=== PATIENT | male | born 1940 | race Caucasian/White ===

== ENCOUNTER 2017-03-02 16:05 | Inpatient (IN) ==
--- NOTE | 2017-03-02 16:42 | CT Report ---
CT head/brain wo con Indication: Hemiparesis. CT BRAIN WITHOUT CONTRAST DLP: 915 mGy*cm. One or more of the following dose reduction techniques was used: Automated exposure control, adjustment of the mA and/or kV according the patient size, or use of iterative reconstruction techniques. Comparison: 12/19/2013. Date of admission: 03/02/2017. Technique: Axial noncontrast CT images of the brain were obtained. Findings: Chronic infarcts of the left temporal, occipital and parietal lobes are now present, new since 12/19/2013. Elsewhere, chun-white junction is maintained. Basal ganglia structures are well maintained as well. No midline shift. Ex vacuo dilatation of the left lateral ventricle developing. No acute hemorrhage, mass or mass effect. Mild atrophy. No bone lesions. Visualized sinuses are clear. Impression: Old large territory infarcts of the left MCA and ELECTRIC TRUCKER vascular territories involving the left temporal, parietal and occipital lobes. No acute hemorrhage or acute stroke identified. PROCEDURE INTERPRETED AT [facility] DEPARTMENT OF RADIOLOGY Final Report Signed by: Jose Gomez M.D.
--- NOTE | 2017-03-02 16:45 | XRay Report ---
XR chest 1V portable Indication: Cardiomegaly. Chest one view: Comparison 12/19/2013. Pulmonary vascular congestion is improved from the previous examination although there is still some degree of central pulmonary arterial prominence as well as subpleural septal thickening of both lung bases laterally. Scattered calcified granulomata are stable. Lung volumes remain low. Cardiomegaly has improved but persists. Impression: Improved CHF and compared to 12/19/2013. However, there is an element of failure present on the current exam. Scattered calcified granulomata. PROCEDURE INTERPRETED AT [facility] DEPARTMENT OF RADIOLOGY Final Report Signed by: Jose Gomez M.D.
--- NOTE | 2017-03-02 17:05 | EKG Report ---
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
[2017-03-02 17:11] LABS: Basophils # 0.1 10*3/uL (0.0-0.2); Basophils % 0.9 % (0.0-0.8); Eosinophils # 0.2 10*3/uL (0.0-0.87); Eosinophils % 2.3 % (0.00-10.9); Hematocrit 41.7 VOL% (42.0-52.0); Hemoglobin 14.2 GM/DL (14.0-18.0); Immature Granulocytes % 0.4 %; Immature Granulocytes Absolute 0.04 #; Lymphocytes # 1.4 10*3/uL (1.4-4.0); Lymphocytes % 15.6 % (21.2-54.2); Mean Corpuscular HGB Conc 34.1 GM/DL (32-36); Mean Corpuscular Hemoglobin 31 PG (27-34); Mean Corpuscular Volume 91.9 FL (87-102); Mean Platelet Volume 11.3 FL (9.6-12.0); Monocytes % 11.1 % (1.7-12.7); Neutrophils # 6.4 10*3/uL (1.4-7.4); Neutrophils % 69.7 % (38.7-73.9); Platelet Count 133 T/CUMM (130-400); Red Blood Count 4.54 MC/CUMM (3.8-5.5); Red Cell Distribution Width 13.3 % (9.3-17.3); White Blood Count 9.2 T/CUMM (4-12)
[2017-03-02] MEDS ORDERED: ACETAMINOPHEN 325 MG TABLET PO PRN (17:12)
[2017-03-02] MEDS ORDERED: ONDANSETRON 4 MG/2 ML VIAL IV PRN (17:12)
[2017-03-02 17:24] LABS: PT Patient Result 10.3 SECS; Partial Thromboplastin Time 25.9 SECS (0-40)
[2017-03-02 17:30] LABS: Apearance,Urine CLEAR (Clear); Bilirubin,Urine Negative (Negative); Blood, Urine Negative (Negative); Glucose,Urine (UA) >=500 mg/dL (Negative); Hyaline Casts,Urine 1 /LPF (0-3); Ketones,Urine Negative (Negative); Nitrite,Urine Negative (Negative); Protein,Urine Negative; Urine Color Straw (Yellow); Urine Specific Gravity 1.009 (1.001-1.035); Urine Urobilinogen < 2.0 EU/DL (0.2-1.0)
[2017-03-02 17:39] LABS: Barbiturates Screen,Urine Negative (Negative); Benzodiazepines Screen,Urine Negative (Negative); Cannabinoid Screen,Urine Negative (Negative); Opiate Screen,Urine Negative (Negative); Phencyclidine Screen,Urine Negative (Negative)
[2017-03-02 17:47] LABS: Alanine Aminotransferase 23 U/L (16-61); Albumin 3.6 G/DL (3.4-5.0); Alkaline Phosphatase 81 U/L (45-117); Aspartate Amino Transferase 21 U/L (0-37); Blood Urea Nitrogen 29 MG/DL (7-18); Calcium 9.5 MG/DL (8.5-10.1); Glucose 200 MG/DL (74-106); Osmolality,Calculated 284.8 MOS/KG (273-304); Potassium 4.9 MMOL/L (3.5-5.1); Sodium 137 MMOL/L (136-145)
[2017-03-02] MEDS ORDERED: ENOXAPARIN 40 MG/0.4 ML SYRINGE ONE (18:04)
[2017-03-02] MEDS: ENOXAPARIN 40 MG/0.4 ML SYRINGE SUBCUT SCH ×2 (18:11→18:42)
[2017-03-03] MEDS: DOCUSATE SODIUM 100 MG CAPSULE PO SCH ×3 (03:42→21:14)
--- NOTE | 2017-03-03 08:20 | Family Practice History&Phys ---
Assessment and Plan (1) Possible CVA Status: Acute Assessment and plan: Patient was admitted for close observation and therapy he is scheduled to have MRI of the brain duplex ultrasound of the carotids today. Current Visit: Yes (2) History of previous CVA Status: Chronic Assessment and plan: Previous large MCA and PROPERTY VALUER vascular territory infarct with expressive aphasia. Current Visit: Yes (3) Expressive aphasia Status: Chronic Assessment and plan: Expressive aphasia since previous cerebrovascular accident Current Visit: Yes (4) Type 2 diabetes mellitus Status: Chronic Assessment and plan: Stable on present medication Current Visit: Yes (5) Hypertension Status: Chronic Assessment and plan: Stable on present medication Current Visit: Yes (6) Hyperlipidemia Status: Chronic Assessment and plan: Stable at present Current Visit: Yes History of Present Illness Chief complaint: Patient weakness weakness right arm and History of present illness: Mr. Peña is a 77 year old male Patient is a 77-year-old white male who treated for many years who is admitted to the emergency room after he had a sudden onset of mental status changes associated with some right facial weakness and weakness in her right arm right leg. states that he woke up suddenly during the night and apparently was able to talk for a brief period of time. He has had expressive aphasia since his last cerebrovascular accident. He went back to sleep and when he woke up he was not able to talk. He has had some weakness in his arm and leg although patient states that it did resolve this a.m.. He was seen in the emergency room and head CT revealed previous old large infarct but is otherwise stable. He was admitted for further evaluation and therapy. Presently on oral anticoagulant. View of history was admitted for observation therapy Home Medications Medication Instructions Recorded Confirmed Type Clopidogrel Bisulfate [Clopidogrel] 75 mg PO DAILY 03/02/17 03/02/17 History Glyburide,Micronized [Glyburide 6 mg PO BID 03/02/17 03/02/17 History Micronized] Insulin Glargine,Hum.rec.anlog 16 units SUBCUT DAILY 03/02/17 03/02/17 History [Lantus SoloStar] Lisinopril [Lisinopril] 20 mg PO DAILY 03/02/17 03/02/17 History Loratadine Tab [Claritin Tab] 10 mg PO BEDTIME 03/02/17 03/02/17 History Magnesium Chloride [Slow Mag] 64 mg PO BID 03/02/17 03/02/17 History Nadolol [Nadolol] 20 mg PO DAILY 03/02/17 03/02/17 History Simvastatin [Simvastatin] 20 mg PO BEDTIME 03/02/17 03/02/17 History Allergies Allergy/AdvReac Type Severity Reaction Status Date / Time No Known Allergies Allergy Unverified 03/02/17 17:18 Medical,Surgical,& Family Hx - Medical History Cardio: History of: Hypertension Neurology: History of: Cerebrovascular Accident Endocrine: History of: Diabetes Mellitus (IDDM), Dyslipidemia Genitourinary: History of: Prostate Problems Musculoskeletal: No history of: Amputation - Surgical History HEENT Surgeries: Surgical HX of: Tonsilectomy & Adenoidectomy Abdominal Surgeries: Patient denies: Abdominal Surgery Reproductive Surgeries: Patient denies;: Genitourinary Surgery - Family History Family History: Reports;: Family Cancer (mother, colon CA), Family Diabetes - Social History Smoking Status: Never smoker Frequency of Alcohol Use: None Type of Drug Use: None Marital Status: Lives With:: Spouse Functional capacity: independent ambulation Exam - Constitutional Vitals: Period Temp Pulse Resp BP Sys/Anton Pulse Ox Last 24 Hr 97.4 F-99.5 F 54-95 14-20 109-181/58-111 94-99 General appearance: mild distress - Head Head exam: Present: normal inspection - Eye Pupils: Present: ROBINSON - ENT ENT exam: Present: normal exam - Neck Neck exam: Present: normal inspection - Respiratory Respiratory exam: Present: clear to auscultation bilaterally - Cardiovascular Cardiovascular exam: Present: regular rate and rhythm - GI/Abdominal GI/Abdominal exam: Present: normal bowel sounds, soft - Extremities Exam Extremities exam: Present: other (Patient has slight weakness right arm and right leg which is stable) - Back Exam Back exam: Present: normal inspection - Neurological Exam Neurological exam: Present: alert, other (Patient has expressive aphasia. Slight right facial weakness which is stable. Slight weakness right arm which is stable) - Psychiatric Psychiatric exam: Present: normal affect - Skin Skin exam: Present: normal color Results - Labs CBC & BMP: 03/02/17 16:58 03/02/17 16:58
[2017-03-03] MEDS: INSULIN GLARGINE 100 UNIT/ML SUBCUT SCH (08:50)
[2017-03-03] MEDS: glyBURIDE MICRONIZED 6 MG TABLET PO SCH ×2 (08:51→17:07)
[2017-03-03] MEDS: NADOLOL 40 MG TABLET PO SCH (08:51)
[2017-03-03] MEDS: LISINOPRIL 20 MG TABLET PO SCH (08:52)
[2017-03-03] MEDS: PANTOPRAZOLE 40 MG TABLET PO SCH (08:52)
[2017-03-03] MEDS ORDERED: CLOPIDOGREL 75 MG TABLET PO SCH (09:00)
--- NOTE | 2017-03-03 10:04 | Ultrasound Report ---
Carotid artery ultrasound Indication: Stroke Comparison: None available Color Doppler flow and spectral analysis was performed. Findings: Small amount of atherosclerotic plaque is present in both proximal internal carotid arteries. Small amount of calcification with shadowing is seen in the right proximal internal carotid artery. Right peak systolic velocity: Right CCA:59.2 Right proximal Internal Carotid Artery is 60.0 cm/s. Ratio of flow is 1.3 Right distal Internal Carotid is 77.6 cm/s . Left peak systolic velocity: Left CCA:63.3 Left proximal Internal carotid Artery is 44.1 cm/s . Ratio of flow is 0.7 Left distal Internal carotid Artery is 42.4cm/s Bilateral antegrade vertebral flow is seen. Impression: No evidence of hemodynamically significant stenosis is seen, 0-49% estimated stenosis. Consensus conference on the carotid ultrasound criteria used. Ultrasound images were captured and stored. PROCEDURE INTERPRETED AT [facility] DEPARTMENT OF RADIOLOGY Final Report Signed by: Dr. Braden Figueroa
[2017-03-03] MEDS: MAGNESIUM CHLORIDE 64 MG TABLET PO SCH ×2 (10:34→21:14)
[2017-03-03] MEDS: INSULIN LISPRO 100 UNIT/ML SUBCUT SCH ×3 (12:18→21:14)
--- NOTE | 2017-03-03 13:40 | Magnetic Resonance Report ---
MRI brain without contrast Indication: Right side facial weakness Comparison: 20 December 2013, CT 02 March 2017 Technique: Axial sagittal and coronal imaging of the brain is performed without contrast. T1, T2, FLAIR and diffusion weighted sequences are performed. Findings: There is restricted diffusion present in the medial left occipital occipital lobe more prominent in the periphery, similar to CT appearance. Centrally there is signal hypointensity on the gradient sequence consistent with hemorrhage. Encephalomalacia and chronic infarct in the left temporal left parietal lobe area involved from previous infarct since the previous exam. No other evidence of intracranial hemorrhage, mass, mass effect or midline shift is seen. The remaining brain parenchyma has normal signal and differentiation. The ventricles and cisterns are appropriate in caliber. Posterior fossa, mid brain and pituitary gland appear within normal limits. No evidence of cranial or skull base abnormality seen. Impression: Medial occipital lobe infarct with some internal hemorrhage present similar to CT appearance. No other acute findings. PROCEDURE INTERPRETED AT [facility] DEPARTMENT OF RADIOLOGY Final Report Signed by: Dr. Braden Figueroa
--- NOTE | 2017-03-03 15:41 | Neurology Consult Note ---
History of Present Illness History of present illness: Mr. Peña is a 77 year old right-handed white gentleman with past medical history of CVA, diabetes, hyperlipidemia, hypertension admitted to the hospital with acute onset of difficulty with her speech, right facial droop, right arm weakness and leg weakness. states that he woke up suddenly during the night and apparently was able to talk for a brief period of time. He has had expressive aphasia since his last cerebrovascular accident. He went back to sleep and when he woke up he was not able to talk. He has had some weakness in his arm and leg. CT head revealed previous old large infarct in the left MCA distribution. MRI of the brain revealed new subacute to acute left MCA distribution infarct involving both temporal and occipital lobe this time. Carotid ultrasound is unremarkable. Echo and lipid profile are not done. Patient was taking Plavix at home. Home Medications Medication Instructions Recorded Confirmed Type Clopidogrel Bisulfate [Clopidogrel] 75 mg PO DAILY 03/02/17 03/02/17 History Glyburide,Micronized [Glyburide 6 mg PO BID 03/02/17 03/02/17 History Micronized] Insulin Glargine,Hum.rec.anlog 16 units SUBCUT DAILY 03/02/17 03/02/17 History [Lantus SoloStar] Lisinopril [Lisinopril] 20 mg PO DAILY 03/02/17 03/02/17 History Loratadine Tab [Claritin Tab] 10 mg PO BEDTIME 03/02/17 03/02/17 History Magnesium Chloride [Slow Mag] 64 mg PO BID 03/02/17 03/02/17 History Nadolol [Nadolol] 20 mg PO DAILY 03/02/17 03/02/17 History Simvastatin [Simvastatin] 20 mg PO BEDTIME 03/02/17 03/02/17 History Allergies Allergy/AdvReac Type Severity Reaction Status Date / Time No Known Allergies Allergy Unverified 03/02/17 17:18 12 point system: reviewed and no additional remarkable complaints except as stated Medical,Surgical,& Family Hx - Medical History Cardio: History of: Hypertension Neurology: History of: Cerebrovascular Accident Endocrine: History of: Diabetes Mellitus (IDDM), Dyslipidemia Genitourinary: History of: Prostate Problems Musculoskeletal: No history of: Amputation - Surgical History HEENT Surgeries: Surgical HX of: Tonsilectomy & Adenoidectomy Abdominal Surgeries: Patient denies: Abdominal Surgery Reproductive Surgeries: Patient denies;: Genitourinary Surgery - Family History Family History: Reports;: Family Cancer (mother, colon CA), Family Diabetes - Social History Smoking Status: Never smoker Frequency of Alcohol Use: None Type of Drug Use: None Exam - Constitutional Vitals: Period Temp Pulse Resp BP Sys/Anton Pulse Ox Last 24 Hr 97.4 F-99.5 F 54-98 14-20 109-181/58-111 94-99 Exam: GENERAL: Patient is in no acute distress. NECK: Neck is supple. There is no JVD. No carotid bruits present. No thyroid masses. CVS: First and second heart sounds are normal. There is no S3 present. Regular rate and rhythm. RESPIRATORY: Lungs are clear to auscultation without any rales or rhonchi. ABDOMEN: Soft and non-tender. Bowel sounds are present. There is no hepatosplenomegaly. EXT: There is no palpable edema. Peripheral pulses are present. Skin: No rashes Central Nervous system: General: Alert, awake and Oriented x 3 Speech: Fluent Comprehension: Intact and normal Facial expressions: Normal Cranial Nerves: CN1/Olfactory: Normal CN II/ Optic: Normal, Visual Arango unreliable CN III, and : ROBINSON & EOMI CN V: Normal & intact CN VII: face is symmetric CNVIII: Normal CN XI/X/XI/XII: Intact and Normal Motor: Bulk and Tone is normal. Strength in the right 4/5 Strength in the left 5/5 Sensory: Grossly intact for all the modalities of PP, LT and temp sense Reflexes: 1+ and symmetrical Cerebellar function: Normal finger to nose and heel to cho testing. Toes: Equivocal Gait: Able to get up and walk Results - Labs CBC & BMP: 03/02/17 16:58 03/02/17 16:58 Assessment and Plan (1) Acute CVA (cerebrovascular accident) Status: Acute Assessment and plan: Stop Plavix Start Eliquis 2.5 twice daily Echocardiogram Lipid panel Consult ST PT OT Add Lipitor 10 mg p.o. daily Current Visit: Yes
[2017-03-03 16:44] LABS: Risk Ratio 2.71; VLDL CHOLESTEROL 21.6 MG/DL
[2017-03-03] MEDS ORDERED: SIMVASTATIN 20 MG TABLET PO SCH (21:00)
[2017-03-03] MEDS ORDERED: LORATADINE 10 MG TABLET PO SCH (21:00)
[2017-03-03] MEDS: APIXABAN 2.5 MG TABLET PO SCH (21:14)
[2017-03-04 07:20] LABS: Basophils # 0.1 10*3/uL (0.0-0.2); Basophils % 1.2 % (0.0-0.8); Eosinophils # 0.2 10*3/uL (0.0-0.87); Eosinophils % 1.7 % (0.00-10.9); Hematocrit 43.8 VOL% (42.0-52.0); Hemoglobin 15.2 GM/DL (14.0-18.0); Immature Granulocytes % 0.6 %; Immature Granulocytes Absolute 0.07 #; Lymphocytes # 2.1 10*3/uL (1.4-4.0); Lymphocytes % 17.3 % (21.2-54.2); Mean Corpuscular HGB Conc 34.7 GM/DL (32-36); Mean Corpuscular Hemoglobin 31 PG (27-34); Mean Corpuscular Volume 90.3 FL (87-102); Mean Platelet Volume 12.2 FL (9.6-12.0); Monocytes # 1.2 10*3/uL (0.11-0.8); Monocytes % 10.3 % (1.7-12.7); Neutrophils # 8.2 10*3/uL (1.4-7.4); Neutrophils % 68.9 % (38.7-73.9); Platelet Count 139 T/CUMM (130-400); Red Blood Count 4.85 MC/CUMM (3.8-5.5); Red Cell Distribution Width 13.3 % (9.3-17.3); White Blood Count 11.9 T/CUMM (4-12)
[2017-03-04 07:42] LABS: Osmolality,Calculated 283.7 MOS/KG (273-304); Potassium 4.4 MMOL/L (3.5-5.1)
[2017-03-04 08:08] VITALS: BP 120/59
--- NOTE | 2017-03-04 08:26 | Discharge Summary ---
Hospital Course - Hospital Course Hospital Course: History of present illness: Mr. Peña is a 77 year old male Patient is a 77-year-old white male who treated for many years who is admitted to the emergency room after he had a sudden onset of mental status changes associated with some right facial weakness and weakness in her right arm right leg. states that he woke up suddenly during the night and apparently was able to talk for a brief period of time. He has had expressive aphasia since his last cerebrovascular accident. He went back to sleep and when he woke up he was not able to talk. He has had some weakness in his arm and leg although patient states that it did resolve this a.m.. He was seen in the emergency room and head CT revealed previous old large infarct but is otherwise stable. He was admitted for further evaluation and therapy. Presently on oral anticoagulant. View of history was admitted for observation therapy DISCHARGE SUMMARY -patient was admitted hospital lab and x-ray studies obtained. Initial head CT revealed old infarct but no new changes. Patient's weakness and other symptoms and pretty much resolved by the time he was admitted. Seen in consultation by local neurologist. MRI of the brain and duplex ultrasound of the carotids were obtained. MRI does not reveal any new acute changes possibly reveals a subacute or old infarct since the previous scan. Patient is back to his normal physical and mental state. He is ambulating tolerating diet activity and medications. Will discharge patient to home care have him resume his normal level of activity arrange follow-up in the clinic. Will have him call or return to the emergency room condition worsening problems develop Diagnosis - Discharge Diagnosis (1) Possible CVA Status: Acute (2) History of previous CVA Status: Chronic (3) Expressive aphasia Status: Chronic (4) Type 2 diabetes mellitus Status: Chronic (5) Hypertension Status: Chronic (6) Hyperlipidemia Status: Chronic Discharge Plan - Discharge Data Disposition: Disch To Home/Self Care Condition at Discharge: Stable Discharge Diet: advance to your usual diet Activity: resume usual activities as tolerated Hygiene: no restrictions Weight Bearing at Discharge: full weight bearing Contact your physician if you experience:: fever over 101, Nausea/Vomiting, Shortness of breath - Discharge Medications Continue Magnesium Chloride [Slow Mag] 64 mg PO BID Insulin Glargine,Hum.rec.anlog [Lantus SoloStar] 16 units SUBCUT DAILY Glyburide,Micronized [Glyburide Micronized] 6 mg PO BID Clopidogrel Bisulfate [Clopidogrel] 75 mg PO DAILY Lisinopril 20 mg PO DAILY Simvastatin 20 mg PO BEDTIME Loratadine Tab [Claritin Tab] 10 mg PO BEDTIME Nadolol 20 mg PO DAILY - Follow Up or Referral Follow Up: Osmin Gonzalez DO [Physician] - 1 Week - Forms/Instructions Exam - Constitutional Vitals: Period Temp Pulse Resp BP Sys/Anton Pulse Ox Last 24 Hr 97.2 F-98.4 F 77-98 18-20 104-178/59-82 95-100 General appearance: mild distress - Head Head exam: Present: normal inspection - ENT ENT exam: Present: normal exam - Neck Neck exam: Present: normal inspection - Respiratory Respiratory exam: Present: clear to auscultation bilaterally - Cardiovascular Cardiovascular exam: Present: regular rate and rhythm - GI/Abdominal GI/Abdominal exam: Present: normal bowel sounds, soft - Extremities Exam Extremities exam: Present: normal inspection - Back Exam Back exam: Present: normal inspection - Neurological Exam Neurological exam: Present: alert, other (Patient has expressive aphasia. He has a slight facial weakness on the right with slight weakness right arm and right leg compared to left side this is chronic in nature) - Psychiatric Psychiatric exam: Present: normal affect - Skin Skin exam: Present: normal color Discharge Results Procedures and tests throughout hospitalization: Pending Orders 03/04/17 06:24 Magnesium IN AM Labs on day of discharge: Labs from last 24 hours 03/04/17 03/04/17 03/04/17 07:19 06:24 06:24 WBC 11.9 RBC 4.85 Hgb 15.2 Hct 43.8 MCV 90.3 MCH 31 MCHC 34.7 RDW 13.3 Plt Count 139 MPV 12.2 H Neut % (Auto) 68.9 Lymph % (Auto) 17.3 L Alfalfa % (Auto) 10.3 Eos % (Auto) 1.7 Baso % (Auto) 1.2 H Neut # (Auto) 8.2 H Lymph # (Auto) 2.1 Alfalfa # (Auto) 1.2 H Eos # (Auto) 0.2 Baso # (Auto) 0.1 Immature Gran % 0.6 Nucleated RBC % 0.0 Immature Gran # 0.07 Nucleated RBCs # 0.00 Immature Plt Fraction 0.0 ESR Westergren Sodium 138 Potassium 4.4 Chloride 106 Carbon Dioxide 24 Anion Gap 12.4 BUN 34 H Creatinine 1.60 H GFR Calculation 44 BUN/Creatinine Ratio 21.00 H Glucose 118 H POC Glucose 131 H Hemoglobin A1c Calculated Osmolality 283.7 Calcium 9.0 Triglycerides Cholesterol LDL Cholesterol VLDL Cholesterol HDL Cholesterol Heart Disease Risk Ratio TSH 3rd Generation 03/03/17 03/03/17 03/03/17 20:37 16:04 15:31 WBC RBC Hgb Hct MCV MCH MCHC RDW Plt Count MPV Neut % (Auto) Lymph % (Auto) Alfalfa % (Auto) Eos % (Auto) Baso % (Auto) Neut # (Auto) Lymph # (Auto) Alfalfa # (Auto) Eos # (Auto) Baso # (Auto) Immature Gran % Nucleated RBC % Immature Gran # Nucleated RBCs # Immature Plt Fraction ESR Westergren Sodium Potassium Chloride Carbon Dioxide Anion Gap BUN Creatinine GFR Calculation BUN/Creatinine Ratio Glucose POC Glucose 177 H 84 Hemoglobin A1c Calculated Osmolality Calcium Triglycerides 108 Cholesterol 122 LDL Cholesterol 60.0 VLDL Cholesterol 21.6 HDL Cholesterol 45 Heart Disease Risk Ratio 2.71 TSH 3rd Generation 03/03/17 03/03/17 03/03/17 11:32 08:37 08:37 WBC RBC Hgb Hct MCV MCH MCHC RDW Plt Count MPV Neut % (Auto) Lymph % (Auto) Alfalfa % (Auto) Eos % (Auto) Baso % (Auto) Neut # (Auto) Lymph # (Auto) Alfalfa # (Auto) Eos # (Auto) Baso # (Auto) Immature Gran % Nucleated RBC % Immature Gran # Nucleated RBCs # Immature Plt Fraction ESR Westergren Sodium Potassium Chloride Carbon Dioxide Anion Gap BUN Creatinine GFR Calculation BUN/Creatinine Ratio Glucose POC Glucose 232 H Hemoglobin A1c 8.4 H Calculated Osmolality Calcium Triglycerides Cholesterol LDL Cholesterol VLDL Cholesterol HDL Cholesterol Heart Disease Risk Ratio TSH 3rd Generation 0.515 03/03/17 08:37 WBC RBC Hgb Hct MCV MCH MCHC RDW Plt Count MPV Neut % (Auto) Lymph % (Auto) Alfalfa % (Auto) Eos % (Auto) Baso % (Auto) Neut # (Auto) Lymph # (Auto) Alfalfa # (Auto) Eos # (Auto) Baso # (Auto) Immature Gran % Nucleated RBC % Immature Gran # Nucleated RBCs # Immature Plt Fraction ESR Westergren 15 Sodium Potassium Chloride Carbon Dioxide Anion Gap BUN Creatinine GFR Calculation BUN/Creatinine Ratio Glucose POC Glucose Hemoglobin A1c Calculated Osmolality Calcium Triglycerides Cholesterol LDL Cholesterol VLDL Cholesterol HDL Cholesterol Heart Disease Risk Ratio TSH 3rd Generation DS: Provider Date of admission: 03/02/17 17:12 Primary care physician: . No PCP Attending physician on admission: Osmin Gonzalez DO Consults: 03/02/17 17:12 Consult to Case Mgmt/Social Srvs [CONS] Routine Reason for Case Mgmt/Social Srvs: Discharge Planning 03/02/17 17:13 Consult to Physician [CONS] Routine Comment: Consulting Provider: Edgard Chavira Consulting Provider Notified: No When should Consulting Provider be notified: In am Person Notified: Dr. Chavira office Date Notified: 03/03/17 Time Notified: 09:00 Consult Notification Comment: [facility] 03/03/17 15:47 Consult to Occupational Therapy [CONS] Routine Reason for Occupational Therapy: Evaluate and Treat Consult to Physical Therapy [CONS] Routine Reason for Physical Therapy: Evaluate and Treat Consult to Speech Therapy [CONS] Routine Reason for Speech Therapy: Evaluate and Treat Discharging clinician: Osmin Gonzalez DO
[2017-03-04] MEDS: INSULIN LISPRO 100 UNIT/ML SUBCUT SCH (08:39)
[2017-03-04] MEDS: DOCUSATE SODIUM 100 MG CAPSULE PO SCH (09:17)
[2017-03-04] MEDS: APIXABAN 2.5 MG TABLET PO SCH (09:17)
[2017-03-04] MEDS: NADOLOL 40 MG TABLET PO SCH (09:17)
[2017-03-04] MEDS: glyBURIDE MICRONIZED 6 MG TABLET PO SCH (09:17)
[2017-03-04] MEDS: INSULIN GLARGINE 100 UNIT/ML SUBCUT SCH (09:17)
[2017-03-04] MEDS: LISINOPRIL 20 MG TABLET PO SCH (09:18)
[2017-03-04] MEDS: PANTOPRAZOLE 40 MG TABLET PO SCH (09:18)
[2017-03-04] MEDS: MAGNESIUM CHLORIDE 64 MG TABLET PO SCH (09:18)
--- NOTE | 2017-03-04 21:08 | ECHO Report ---
Juanjose Peña Exam Date: 03/04/2017 10:36 Referring Physician: Technologist: Brandy Izquierdo RDCS Age: 77 Ht (in): 69 Wt (lb): 158 Gender: M Exam Location: [facility] Echo Indications: Facial weakness following unspecified cerebrovascular disease, Aphasia following unspecified cerebrovascular disease, Right facial droop, Speech difficulty, hx CVA, IDDM, Essential (primary) hypertension BP: 120 / 59 HR: 89 Rhythm: Sinus Technical Quality: average IMPRESSIONS Left ventricular ejection fraction is estimated at 55 %. There is grade 1 diastolic dysfunction. Tricuspid regurgitation velocities suggest a RVSP of 39 mmHg plus the right atrial pressure. MEASUREMENTS (Male / Female) Normal Values 2D ECHO LV Diastolic Diameter PLAX 4.3 cm 4.2 - 5.9 / 3.9 - 5.3 cm LV Systolic Diameter PLAX 3.1 cm LV Fractional Shortening PLAX 28.4 % IVS Diastolic Thickness 1.3 cm 0.6 - 1.0 / 0.6 - 0.9 cm LVPW Diastolic Thickness 1.3 cm 0.6 - 1.0 / 0.6 - 0.9 cm RV Internal Dim ED PLAX 3.2 cm Aortic Root Diameter 3.8 cm LA Systolic Diameter LX 4.0 cm 3.0 - 4.0 / 2.7 - 3.8 cm DOPPLER TR Peak Velocity 312.0 cm/s TR Peak Gradient 38.9 mmHg FINDINGS Left Ventricle Normal left ventricular cavity size. Mild left ventricular hypertrophy. Left ventricular ejection fraction is estimated at 55 %. There is grade 1 diastolic dysfunction Right Ventricle The right ventricle is normal in size and function. Right Atrium The right atrium is normal in size. Left Atrium The left atrium is mildly enlarged. Mitral Valve Morphologically normal mitral valve. Trace mitral valve regurgitation. Aortic Valve Morphologically normal aortic valve without significant sclerosis or stenosis. There is no aortic regurgitation. Tricuspid Valve Morphologically normal tricuspid valve. Mild tricuspid valve regurgitation. Tricuspid regurgitation velocities suggest a RVSP of 39 mmHg plus the right atrial pressure. Pulmonic Valve Morphologically normal pulmonic valve. Trace pulmonary valve regurgitation. Pericardium Normal pericardium without effusion. Aorta Normal ascending aorta dimension. Saskia Butler (Electronically Signed) Final Date: 04 March 2017 21:07
== END 2017-03-04 11:12 | disposition home or self-care (01) | DRG 66 ==
LOC: EDBD → EDUNIT# → N.ED 16:05 → N.EDINP 17:12 → N.2E 18:02
PROVIDERS: ADMIT Family Medicine; ATTEND Family Medicine